=== PATIENT | male | born 2000 | race Two or more races ===

== ENCOUNTER 2022-01-30 01:44 | Emergency (ER) | payer BC, OTHER ==
[~2022-01-30] VITALS: Ht 170.2 cm; Wt 61.2 kg
--- NOTE | 2022-01-30 02:00 | NUR ---
PATIENT BIBRA97 FOR ETOH. PATIENT IS SLEEPING, AROUSE TO TOUCH. PATIENT TAKEN TO ER BED 12. PATIENT NOTED WITH NO SOB, RR EVEN AND UNLABORED. VSS. PATIENT CONNECTED TO CARIDAC MONITOR AND POX.
[2022-01-30 03:31] VITALS: BP 114/61
== END 2022-01-30 06:04 | disposition home or self-care (01) ==
LOC: ER 01:46
DX: F10.129 Alcohol abuse with intoxication, unspecified (principal); Y90.9 Presence of alcohol in blood, level not specified